=== PATIENT | male | born 1955 | race African-American/Black ===

== ENCOUNTER 2019-03-09 13:43 | Day surgery (SDC) | payer BC, OTHER ==
[~2019-03-09] VITALS: Ht 170.2 cm; Wt 114.4 kg
[~2019-03-09 13:43] MED LIST: ASA81BEC PO; FLOMAX0.4 MG PO; GRALISE600 MG PO; LIPITOR10 MG PO; METFORMIN HCL500 M3 PO; MULTIVITAMINS1 EAC7 PO; NEXIUM20 MG PO; NORCO 5-325 TA1 EACH PO
[2019-03-09 15:28] VITALS: BP 148/79
--- NOTE | 2019-03-10 09:18 | O ---
[facility] [place] [address] OPERATIVE REPORT Name: LALITHA JONES Room #: DEP [facility]#: [id number] Admission: 03/09/19 Attend Phys: Jack Scott MD Discharge: 03/09/19 Date of : 55 Report #: [id number] THIS REPORT FOR: //name// CC: Jack Alcazar DATE OF SERVICE: 03/09/2019 SERVICE: Orthopedics. FACILITY: [place]. SURGEON: Jack Scott MD [employer] SUPERVISOR: Shazia Chin NP. PREOPERATIVE DIAGNOSES: 1. Left knee pain. 2. Left knee medial meniscus tear. POSTOPERATIVE DIAGNOSES: 1. Left knee pain. 2. Left knee medial meniscus tear. 3. Left knee medial femoral condyle articular cartilage injury. 4. Left knee lateral meniscus tear. PROCEDURE: Left knee arthroscopy with partial medial and lateral meniscectomies and chondroplasty of medial femoral condyle. COMPLICATIONS: None. DRAINS: None. SPECIMENS: None. ANESTHESIA: General. FINDINGS: 1. Highly unstable large flap tear of the posterior horn of the medial meniscus extending into the body, which was essentially a segmental defect of the meniscus and had caused articular cartilage injury to the medial femoral condyle. There was grade 3 and 2 in severity, measured about 9 mm in diameter. 2. Inner rim lateral meniscus tear, treated with partial lateral meniscectomy. 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 He had an MRI, which showed an unstable flap tear of the medial meniscus. We tried conservative measures including rest, activity modifications, corticosteroid injections, oral medicines, but these were insufficient and he wished admitted for definitive surgical treatment. Risks, benefits, alternatives, and indication of surgery discussed with him in detail. Risks include but not limited to pain, bleeding, infection, injury to nerves or blood vessels, persistent pain despite surgical intervention, failure of any repairs, progression of preexisting chondral injury, stiffness, need for further surgery as well as complications related to anesthesia such as stroke, heart attack, pulmonary complications, thromboembolic disease and . Despite these risks, he wished to proceed. PROCEDURE IN DETAIL: After left lower extremity was correctly identified in preoperative holding area as the operative extremity, the patient was taken to the operating room where general anesthesia was induced without complications. He was padded appropriately. Prophylactic antibiotics were administered at appropriate time. Tourniquet was applied to the left leg. Left lower extremity was then prepped and draped in standard sterile fashion. Time-out procedure was performed. Esmarch was used. Tourniquet inflated to 250 mmHg. A standard anterolateral viewing portal was established followed by anteromedial working portal. Diagnostic arthroscopy revealed the above findings. There was essentially no chondromalacia of the patellofemoral joint. The ACL and PCL were intact. Medial compartment had an anterior portion healthy appearing, but there was rather a very substantial tear of the posterior horn of the medial meniscus extending into the body with an unstable flap that could be displaced completely into the medial gutter along the medial femoral condyle and then back into the joint and underneath the condyle. This was large in surface area approximately 17-18 mm in largest measurement diameter. The posterior horn had an unstable tear as well and the shaver was used to perform a thorough partial meniscectomy, after the biter was used to remove the unstable portion of the posterior horn, the biter was used to complete the contouring anteriorly and laterally and then the shaver was used to finalize the partial meniscectomy medially and then performed chondroplasty of the unstable portion of the medial femoral condyle articular cartilage, overall this was not a large surface area. He did lose approximately 35-40% of meniscal volume in his medial meniscus. The leg was placed in the [id number] position, the lateral compartment was evaluated, the articular cartilage was healthy. The lateral meniscus had a significant fraying of the inner 20% of the radius of the meniscus and extended through the middle one-third. This was treated with simple debridement with the shaver to stable perimeter and then no further work was required laterally. Leg was placed into an extended position. The meniscal debris was lavaged out of the knee, the arthroscopic sheath effusion was drained, instruments were removed. Portal sites were closed. Local anesthetic was infiltrated. A sterile dressing was applied followed by an Jaison wrap and compression stocking. [facility] [address] [place] [address] OPERATIVE REPORT Name: LALITHA JONES Room #: [facility] M.R.#: [id number] Admission: 03/09/19 Attend Phys: Jack Scott MD Discharge: 03/09/19 Date of : 55 Report #: [id number] The patient was awakened from anesthesia and taken to recovery room in stable condition. No complications. All counts were correct. <ELECTRONICALLY SIGNED> By: Jack Scott MD 03/10/19 0918 [id number] 1827 Jack Scott MD /nt
== END 2019-03-09 18:35 | disposition home or self-care (01) ==
LOC: OR 13:43 → TBA 13:44 → OR 14:36
DX: M25.562 Pain in left knee (principal); S83.242A Other tear of medial meniscus, current injury, left knee, initial encounter; S83.282A Other tear of lateral meniscus, current injury, left knee, initial encounter; M94.8X6 Other specified disorders of cartilage, lower leg; G47.30 Sleep apnea, unspecified; E78.00 Pure hypercholesterolemia, unspecified; E11.9 Type 2 diabetes mellitus without complications; K21.9 Gastro-esophageal reflux disease without esophagitis; Z87.442 Personal history of urinary calculi; Z98.890 Other specified postprocedural states; Z79.899 Other long term (current) drug therapy; Z87.891 Personal history of nicotine dependence; Z88.0 Allergy status to penicillin; Z79.82 Long term (current) use of aspirin; X58.XXXA Exposure to other specified factors, initial encounter; Y93.89 Activity, other specified; Y92.89 Other specified places as the place of occurrence of the external cause; Y99.8 Other external cause status
CPT/HCPCS: 50010; 50101; 50405; 51038; 54170; 56527; 57103; 57180; 62110; 62900; 70005